=== PATIENT | female | born 1945 | race Caucasian/White ===

== ENCOUNTER 2018-02-03 05:28 | Inpatient (IN) | payer MEDICARE, BC ==
--- NOTE | 2018-02-03 05:47 | RADIOLOGY REPORT (SQ) ---
Clinical History : STROKE ALERT , Exam : Portable AP view of the chest 02/03/2018 5:29 AM CDT Comparisons : none Findings : The patient is in lordotic position which accentuates the lung apices and partially obscures evaluation of the lung bases. The lungs are clear without focal consolidation or pleural effusion. The heart is normal in size. The mediastinal contours are normal in appearance. The thoracic spine is age appropriate. The shoulders are unremarkable. Limited evaluation of the upper abdomen demonstrates no gross abnormalities. Impression: No acute cardiopulmonary disease
--- NOTE | 2018-02-03 05:47 | RADIOLOGY REPORT (SQ) ---
Clinical History : STROKE ALERT. L SIDE WEAKNESS. , Exam : CT Head without contrast 02/03/2018 5:29 AM CDT Comparisons : none. Technique : Volumetric CT acquisition was performed through the brain. Images in the axial, coronal, and sagittal planes were presented for interpretation. This exam was performed according to our departmental dose-optimization program, which includes automated exposure control, adjustment of the mA and/or kV according to patient size and/or use of iterative reconstruction technique. Radiation dose : DLP - 963.96 Findings: The soft tissue structures of the face, scalp, and orbits are normal. The globes remain intact. The patient is status post bilateral cataract resection. The visualized portions of the paranasal sinuses and mastoid air-cells are clear. The calvarium remains intact . There is no acute intracranial hemorrhage, midline shift, or mass effect. The ventricles are normal in size and the posterior fossa structures are normal in appearance. Limited evaluation of the vasculature demonstrates no gross abnormalities. There is no CT evidence of acute infarction. Impression: No acute intracranial process.
[2018-02-03 05:57] LABS: ABSOLUTE BASOPHILS # (AUTO) 0.1 10^3/uL (0.0-0.2); ABSOLUTE EOSINOPHILS # (AUTO) 0.2 10^3/uL (0.0-0.6); ABSOLUTE LYMPHOCYTES (AUTO) 2.3 10^3/uL (0.5-4.7); ABSOLUTE MONOCYTES (AUTO) 0.6 10^3/uL (0.1-1.4); ABSOLUTE NEUT (AUTO) 2.8 10^3/uL (1.7-8.2); EOSINOPHILS % (AUTO) 2.7 % (0-6); HEMATOCRIT 36.4 % (36.0-47.0); HEMOGLOBIN 12.6 g/dL (12.0-15.5); LYMPHOCYTES % (AUTO) 39.4 % (13-45); MEAN CORPUSCULAR HGB CONC 34.6 g/dL (32.0-36.0); MEAN CORPUSCULAR VOLUME 90 fl (80-97); MONOCYTES % (AUTO) 9.8 % (3-13); PLATELET COUNT 160 10^3/uL (150-450); RED BLOOD COUNT 4.06 10^6/uL (3.72-5.28); RED CELL DISTRIBUTION WIDTH 13.3 % (11.5-14.0); SEGMENTED NEUTROPHILS % (AUTO) 47.1 % (42-78); TOTAL CELLS COUNTED % (AUTO) 100 %
[2018-02-03 06:03] LABS: INTERNATIONAL RATION (INR) 1.04; PROTHROMBIN TIME 14.1 SEC (11.4-15.4)
[2018-02-03 06:04] LABS: PARTIAL THROMBOPLASTIN TIME 26.1 SEC (23.5-35.8)
--- NOTE | 2018-02-03 06:06 | ER Document Report ---
ED Medical Screen (RME) - General Chief Complaint: Weakness Stated Complaint: STROKE LIKE SYMPTOMS Mode of Arrival: Medic Information source: Patient, Relative Notes: 73-year-old female with hepatitis, cirrhosis presents via EMS from home with slurred speech and facial droop. Patient states that she awoke 4 hours prior to arrival from sleep with left-sided facial and neck pain. She hesitated to call her daughter initially because she was unaware that she was slurring her speech. She states she is now pain-free. NIH performed upon arrival is 3 for left-sided facial droop and slurred speech. PHYSICAL EXAMINATION: GENERAL: Well-appearing, well-nourished and in no acute distress. HEAD: Atraumatic, normocephalic. EYES: Pupils equal round extraocular movements intact, conjunctiva are normal. ENT: Nares patent NECK: Normal range of motion LUNGS: No respiratory distress Musculoskeletal: Normal range of motion NEUROLOGICAL: Normal speech, normal gait. PSYCH: Normal mood, normal affect. SKIN: Warm, Dry, normal turgor, no rashes or lesions noted. TRAVEL OUTSIDE OF THE [place] IN LAST 30 DAYS: No - Related Data Allergies/Adverse Reactions: No Known Allergies Allergy (Unverified 03/14/14 14:20) Past Medical History - Past Medical History Cardiac Medical History: Denies: Hx Heart Attack, Hx Hypertension Pulmonary Medical History: Denies: Hx Asthma Neurological Medical History: Denies: Hx Cerebrovascular Accident, Hx Seizures GI Medical History: Reports: Hx Hepatitis - hep c FROM SURGERY IN 1982. Denies : Hx Hiatal Hernia, Hx Ulcer Infectious Medical History: Reports: Hx Hepatitis - hep c FROM SURGERY IN 1982 Past Surgical History: Reports: Hx Hysterectomy. Denies: Hx Mastectomy, Hx Open Heart Surgery, Hx Pacemaker Physical Exam - Vital signs Vitals: Pulse Resp BP Pulse Ox 64 18 137/107 H 96 02/03/18 05:28 02/03/18 05:28 02/03/18 05:28 02/03/18 05:28 Course - Vital Signs Vital signs: Temp Pulse Resp BP Pulse Ox 98.2 F 70 16 133/78 H 94 02/03/18 05:30 02/03/18 06:00 02/03/18 07:01 02/03/18 07:01 02/03/18 07:01 - Laboratory Result Diagrams: 02/03/18 05:45 02/03/18 05:45 Laboratory results interpreted by me: 02/03/18 02/03/18 05:45 05:48 Carbon Dioxide 31 H Glucose 234 H POC Glucose 226 H Creatine Kinase 29 L Doctor's Discharge - Discharge Referrals: BACILIO SMITH MD [Primary Care Provider] - Follow up as needed
[2018-02-03 06:10] LABS: ALANINE AMINOTRANSFERASE 30 U/L (9-52); ALBUMIN 4.3 g/dL (3.5-5.0); ALKALINE PHOSPHATASE 58 U/L (38-126); ANION GAP 14 (5-19); ASPARTATE AMINO TRANSFERASE 28 U/L (14-36); BILIRUBIN,DIRECT 0.4 mg/dL (0.0-0.4); BILIRUBIN,TOTAL 0.4 mg/dL (0.2-1.3); BLOOD UREA NITROGEN 18 mg/dL (7-20); CALCIUM 9.6 mg/dL (8.4-10.2); CARBON DIOXIDE 31 mmol/L (22-30); CHLORIDE 100 mmol/L (98-107); CREATINE KINASE 29 U/L (30-135); GLUCOSE 234 mg/dL (75-110); POTASSIUM 4.4 mmol/L (3.6-5.0); SODIUM 144.6 mmol/L (137-145); TOTAL PROTEIN 7.4 g/dL (6.3-8.2)
[2018-02-03 06:22] LABS: CREATINE KINASE MB 0.54 ng/mL (<4.55); TROPONIN I < 0.012 ng/mL
--- NOTE | 2018-02-03 06:31 | ER Document Report ---
ED General - General Mode of Arrival: Medic Information source: Patient, Relative TRAVEL OUTSIDE OF THE [place] IN LAST 30 DAYS: No - HPI Onset: Yesterday Onset/Duration: Sudden Quality of pain: No pain Severity: None Associated symptoms: None Exacerbated by: Denies Relieved by: Denies Similar symptoms previously: No Recently seen / treated by doctor: No <RYAN OBRIEN - Last Filed: 02/03/18 07:21> <SCHUYLER DRUMMOND - Last Filed: 02/03/18 07:59> - General Chief Complaint: Weakness Stated Complaint: STROKE LIKE SYMPTOMS Time Seen by Provider: 02/03/18 06:28 Notes: 73-year-old female with hepatitis, cirrhosis presents via EMS from home with slurred speech and facial droop. Patient states that she awoke 4 hours prior to arrival from sleep with left-sided facial and neck pain. She hesitated to call her daughter initially because she was unaware that she was slurring her speech. She states she is now pain-free. (RYAN OBRIEN) - Related Data Allergies/Adverse Reactions: No Known Allergies Allergy (Unverified 03/14/14 14:20) Past Medical History - General Information source: Patient, Relative - Social History Smoking Status: Former Smoker Frequency of alcohol use: None Drug Abuse: None Lives with: Family Family History: Reviewed & Not Pertinent - Past Medical History Cardiac Medical History: Denies: Hx Heart Attack, Hx Hypertension Pulmonary Medical History: Denies: Hx Asthma Neurological Medical History: Denies: Hx Cerebrovascular Accident, Hx Seizures GI Medical History: Reports: Hx Hepatitis - hep c FROM SURGERY IN 1982. Denies : Hx Hiatal Hernia, Hx Ulcer Infectious Medical History: Reports: Hx Hepatitis - hep c FROM SURGERY IN 1982 Past Surgical History: Reports: Hx Hysterectomy. Denies: Hx Mastectomy, Hx Open Heart Surgery, Hx Pacemaker <RYAN OBRIEN - Last Filed: 02/03/18 07:21> Review of Systems <RYAN OBRIEN - Last Filed: 02/03/18 07:21> <SCHUYLER DRUMMOND - Last Filed: 02/03/18 07:59> - Review of Systems Notes: REVIEW OF SYSTEMS: CONSTITUTIONAL : Denies fever, chills, or sweats. Denies recent illness. Denies weight loss, recent hospitalizations. EENT: Denies visula changes, eye pain. Denies nasal or sinus congestion or discharge. Denies sore throat, oral lesions, difficulty swallowing. CARDIOVASCULAR: Denies chest pain. Denies palpitations or racing or irregular heart beat. Denies lower extremity edema. RESPIRATORY: Denies cough, cold, or chest congestion. Denies shortness of breath, difficulty breathing, or wheezing. GASTROINTESTINAL: Denies abdominal pain or distention. Denies nausea, vomiting , or diarrhea. Denies blood in vomitus, stools, or per rectum. Denies black, tarry stools. Denies constipation. GENITOURINARY: Denies difficulty urinating, painful urination, burning, frequency, blood in urine, or vaginal discharge. MUSCULOSKELETAL: Denies back or neck pain or stiffness. Denies joint pain or swelling. SKIN: Denies rash, lesions or sores. HEMATOLOGIC : Denies easy bruising or bleeding. LYMPHATIC: Denies swollen, enlarged glands. NEUROLOGICAL: Denies confusion or altered mental status. Denies passing out or loss of consciousness. Denies dizziness or lightheadedness. Denies weakness or paralysis or loss of use of either side. Denies problems with gait or speech. Denies sensory loss, numbness, or tingling. Denies seizures. PSYCHIATRIC: Denies anxiety or stress. Denies depression, suicidal ideation, or homicidal ideation. (RYAN OBRIEN) Physical Exam <RYAN OBRIEN - Last Filed: 02/03/18 07:21> <SCHUYLER DRUMMOND - Last Filed: 02/03/18 07:59> - Vital signs Vitals: Pulse Resp BP Pulse Ox 64 18 137/107 H 96 02/03/18 05:28 02/03/18 05:28 02/03/18 05:28 02/03/18 05:28 - Notes Notes: PHYSICAL EXAMINATION: GENERAL: Well-appearing, well-nourished and in no acute distress. HEAD: Atraumatic, normocephalic. EYES: Pupils equal round and reactive to light, extraocular movements intact, conjunctiva are normal. ENT: Nares patent, oropharynx clear without exudates. Moist mucous membranes. NECK: Normal range of motion, supple without lymphadenopathy LUNGS: Breath sounds clear to auscultation bilaterally and equal. No wheezes rales or rhonchi. HEART: Regular rate and rhythm without murmurs ABDOMEN: Soft, nontender, nondistended abdomen. No guarding, no rebound. No masses appreciated. Female : deferred Musculoskeletal: Normal range of motion, no pitting or edema. No cyanosis. NEUROLOGICAL: Left-sided facial droop. Slurred speech Normal sensory, motor exams PSYCH: Normal mood, normal affect. SKIN: Warm, Dry, normal turgor, no rashes or lesions noted. (RYAN OBRIEN) Course - Laboratory Result Diagrams: 02/03/18 05:45 02/03/18 05:45 <RYAN OBRIEN - Last Filed: 02/03/18 07:21> - Laboratory Result Diagrams: 02/03/18 05:45 02/03/18 05:45 <SCHUYLER DRUMMOND - Last Filed: 02/03/18 07:59> - Re-evaluation Re-evalutation: Laboratory 02/03/18 02/03/18 02/03/18 05:45 05:45 05:45 WBC 6.0 RBC 4.06 Hgb 12.6 Hct 36.4 MCV 90 MCH 31.0 MCHC 34.6 RDW 13.3 Plt Count 160 Seg Neutrophils % 47.1 Lymphocytes % 39.4 Monocytes % 9.8 Eosinophils % 2.7 Basophils % 1.0 Absolute Neutrophils 2.8 Absolute Lymphocytes 2.3 Absolute Monocytes 0.6 Absolute Eosinophils 0.2 Absolute Basophils 0.1 PT 14.1 INR 1.04 APTT 26.1 Sodium 144.6 Potassium 4.4 Chloride 100 Carbon Dioxide 31 H Anion Gap 14 BUN 18 Creatinine 0.86 Est GFR ( Amer) > 60 Est GFR (Non-Af Amer) > 60 Glucose 234 H POC Glucose Calcium 9.6 Total Bilirubin 0.4 Direct Bilirubin 0.4 Neonat Total Bilirubin Not Reportable Neonat Direct Bilirubin Not Reportable Neonat Indirect Bili Not Reportable AST 28 ALT 30 Alkaline Phosphatase 58 Creatine Kinase 29 L CK-MB (CK-2) Troponin I Total Protein 7.4 Albumin 4.3 02/03/18 02/03/18 05:45 05:48 WBC RBC Hgb Hct MCV MCH MCHC RDW Plt Count Seg Neutrophils % Lymphocytes % Monocytes % Eosinophils % Basophils % Absolute Neutrophils Absolute Lymphocytes Absolute Monocytes Absolute Eosinophils Absolute Basophils PT INR APTT Sodium Potassium Chloride Carbon Dioxide Anion Gap BUN Creatinine Est GFR ( Amer) Est GFR (Non-Af Amer) Glucose POC Glucose 226 H Calcium Total Bilirubin Direct Bilirubin Neonat Total Bilirubin Neonat Direct Bilirubin Neonat Indirect Bili AST ALT Alkaline Phosphatase Creatine Kinase CK-MB (CK-2) 0.54 Troponin I < 0.012 Total Protein Albumin Head CTA 02/03/18 06:07 IMPRESSION: 1. No definite acute abnormality identified in the intracranial circulation. No evidence of occlusion or stenosis. This exam was performed according to our departmental dose-optimization program, which includes automated exposure control, adjustment of the mA and/or kV according to patient size and/or use of iterative reconstruction technique. 02/03/18 06:32 73-year-old female with hepatitis, cirrhosis presents via EMS from home with slurred speech and facial droop. Patient states that she awoke 4 hours prior to arrival from sleep with left-sided facial and neck pain. She hesitated to call her daughter initially because she was unaware that she was slurring her speech. She states she is now pain-free. NIH scale performed upon arrival and 3 for facial droop, slurred speech. Last known well is unknown. Patient was seen by myself upon arrival. Vital signs were reviewed. Patient is afebrile, normotensive and not hypoxic. Patient does not appear toxic or dehydrated. They are in no acute distress. Previous medical records and nursing notes reviewed. Patient will be signed out to Dr. Drummond 02/03/18 07:21 02/03/18 07:22 (RYAN OBRIEN) 02/03/18 07:55 CT of the head is negative, there is no large vessel occlusion, there is no evidence of dissection. No indication for transfer to tertiary center as she is not a candidate for intervention. Family also understands why the patient is not a candidate for TPA with wake-up stroke well outside of the for an half hour timeframe. Patient was discussed with Dr. Rosibel Ruiz from the hospitalist service, she will place the patient on her service in observation status. (SCHUYLER DRUMMOND) - Vital Signs Vital signs: Temp Pulse Resp BP Pulse Ox 98.2 F 70 16 133/78 H 94 02/03/18 05:30 02/03/18 06:00 02/03/18 07:01 02/03/18 07:01 02/03/18 07:01 - Laboratory Laboratory results interpreted by me: 02/03/18 02/03/18 05:45 05:48 Carbon Dioxide 31 H Glucose 234 H POC Glucose 226 H Creatine Kinase 29 L Discharge <RYAN OBRIEN - Last Filed: 02/03/18 07:21> - Discharge Admitting Provider: [facility] Admitted: [facility] <SCHUYLER DRUMMOND - Last Filed: 02/03/18 07:59> - Discharge Clinical Impression: Stroke Qualifiers: CVA mechanism: unspecified Qualified Code(s): I63.9 - Cerebral infarction, unspecified Condition: Fair Disposition: ADMITTED OBSERVATION Referrals: BACILIO SMITH MD [Primary Care Provider] - Follow up as needed ED NIH Stroke Scale - NIH Stroke Scale *: 1. NIH scale should be completed with appropriate accompanying assessment tools. *: 2. The NIH should reflect what the patient is capable of doing and should not be coached by the clinician. 1a. Level of Consciousness: 0=Alert;keenly responsive -: 1=Drowsy -: 2=Obtunded -: 3=Coma/unresponsive or reflex to noxious stimuli. 1a. Responses: 0 1b. Orientation Questions: a. What month is it? -: b. How old are you? -: 0=Answers both questions correctly. -: 1=Answers one question correctly or patient is intubated or has orotracheal trauma. -: 2=Answers neither question correctly. 1b. Responses: 0 1c. Response to commands: a. Open and close eyes? -: b. Flavor Maker and release hand? -: Credit is given despite weakness. Demonstration of task is permitted. Substitute command if hands cannot be used. -: 0=Performs both tasks correctly -: 1=Performs one task correctly -: 2=Performs neither task correctly 1c. Responses: 0 2. Gaze: Establish eye contact and instruct patient to "Follow my finger" -: 0=Normal -: 1=Partial gaze palsy. Gaze is abnormal in one or both eyes, but where forced deviation or total gaze paresis is not present. -: 2=Forced deviation or total gaze paresis. 2. Responses: 0 3. Visual Saenz: Sees fingers in all four quadrants. -: 0=No visual loss. -: 1=Partial hemianopsia. -: 2=Complete hemianopsia. -: 3=Bilateral hemianopsia (including Cortical blindness) 3. Responses: 0 4. Facial Movement: Instruct patient to: -: a. Show me your teeth -: b. Raise your eyebrows -: c. Close your eyes -: d. Smile -: 0=Normal symmetrical movement -: 1=Minor paralysis (flattened nasolabial fold, asymmetry on smiling). -: 2=Partial paralysis (total or near total paralysis of lower face). -: 3=Complete paralysis of upper and lower face 4. Responses: 2 5. Motor functions (left arm): Alternate sides and extend each arm with palms down (90 degrees if sitting or 45 degrees for supine). -: 0=No drift;limb holds for full 10 seconds. -: 1=Drift; limb holds but drifts down before full 10 seconds, but does not hit bed. -: 2=Some effort against gravity; limb cannot get to or maintain position. -: 3=No effort against gravity; limb falls. -: 4=No movement. -: UN=Amputation, joint fusion, explain in comments. 5. Responses (left arm): 0 5. Motor Functions (right arm): Alternate sides and extend each arm with palms down (90 degrees if sitting or 45 degrees for supine). -: 0=No drift;limb holds for full 10 seconds. -: 1=Drift; limb holds but drifts down before full 10 seconds, but does not hit bed. -: 2=Some effort against gravity; limb cannot get to or maintain position. -: 3=No effort against gravity; limb falls. -: 4=No movement. -: UN=Amputation, joint fusion, explain in comments. 5. Responses (right arm): 0 6. Motor Functions (left leg): With patient lying supine, alternate sides and extend each leg (30 degrees always while supine). -: 0=No drift, leg holds position for full 5 seconds -: 1=Drift; leg falls before full 5 seconds but does not hit bed. -: 2=Some effort against gravity, leg falls to bed but some effort against gravity. -: 3=No effort against gravity, leg falls to bed immediately. -: 4=No movement. -: UN=Amputation, joint fusion; explain in comments. 6. Responses (left leg): 0 6. Motor Functions (right leg): With patient lying supine, alternate sides and extend each leg (30 degrees always while supine). -: 0=No drift, leg holds position for full 5 seconds -: 1=Drift; leg falls before full 5 seconds but does not hit bed. -: 2=Some effort against gravity, leg falls to bed but some effort against gravity. -: 3=No effort against gravity, leg falls to bed immediately. -: 4=No movement. -: UN=Amputation, joint fusion; explain in comments. 6. Responses (right leg): 0 7. Limb Ataxia: With eyes open instruct patient to: -: a. "Touch your finger to your nose". -: b. "Touch your heel to your pickens" -: 0=Absent -: 1=Present in one limb. -: 2=Present in two limbs. -: UN=Amputation or joint fusion; explain in comments. 7. Responses: 0 8. Sensory: Test sensation using pinprick or noxious stimuli. Test as many body parts as possible. -: 0=Normal;no sensory loss -: 1=Mile to moderate sensory loss (patient feels pin prick but is less sharp on affected side). -: 2=Severe or total sensory loss. 8. Responses: 0 9. Best Language: Instruct patient to: -: a. "Describe what you see in this picture." -: b. "Name the items in this picture." -: c. "Read these sentences." -: 0=No aphasia, normal -: 1=Mild to moderate aphasia. -: 2=Severe aphasia -: 3=Mute, global aphasia, no usable speech or auditory comprehension. 9. Responses: 0 10. Articulation, Dysarthia: Instruct patient to: -: "Read these words" or "Repeat these words" -: 0=Normal -: 1=Mild to moderate; patient may slur some words but can be understood without difficulty. -: 2=Severe; patients speech so slurred as to be unintelligible in the absence of dysphasia. -: UN=Intubated or other physical barrier, explain in comments. 10. Responses: 1 11. Extinction or inattention: 0=No abnormality -: 1= Visual, tactile, auditory, spatial, or personal inattention or extinction to bilateral simulation in one or the sensory modalities. -: 2=Profound khloe-inattention or khloe-inattention to more than one modality; does not recognize own dieudonne. Total Score: 3 <RYAN OBRIEN - Last Filed: 02/03/18 07:21> ED [employer]/Exc Criteria - Date/Time patient last known well: Date/Time: 02/02/2018 21:30 - Date/Time patient arrived in ED: _: 02/03/2018 5:28 - Inclusion Criteria: 1: Patient presented to ED within 3 hours of acute ischemic stroke symptom onset ? -: No 2: Did baseline CT exclude intracranial hemorrhage and/or other risk factors? -: Yes 3: Is the age of the patient 18 years of age or greater? -: Yes : If any of the above questions are answered "NO" then stop, patient is not a candidate for Alteplase, : If all of the above questions are answered "YES" then continue with Exclusion Criteria. - The patient is: -: Included and is eligible to receive Alteplase. *Initiate bed placement at higher level of care* --: No Reviewd risks & benefits of thrombolytic therapy: I have reviewed the risks and benefits of thrombolytic therapy with the patient and/or his/her family. Yes - aware she is out of timeframe -: Excluded and not eligible to receive Alteplase for the above exclusions. --: Yes - out of timefram -: Excluded and not eligible to receive Alteplase for other reasons (specify in comments): <SCHUYLER DRUMMOND - Last Filed: 02/03/18 07:59>
[2018-02-03] MEDS ORDERED: ASPIRIN 81 MG TABLET, CHEWABLE PO ONE (06:42)
--- NOTE | 2018-02-03 06:45 | RADIOLOGY REPORT (SQ) ---
EXAM DESCRIPTION: CTA of the head with contrast CLINICAL HISTORY: slurred speach. COMPARISON: CT of the head performed same day. TECHNIQUE: Axial CTA images of the head obtained following the uncomplicated intravenous administration of 70 mL Isovue-370. 3-D/MIP reformatted images available. FINDINGS: Evaluation is suboptimal due to delayed contrast bolus timing with significant venous contamination. The intracranial internal carotid arteries are widely patent. Mild atherosclerotic plaque. The internal carotid arteries bifurcate into patent A1 and M1 branches of the anterior and middle cerebral arteries, respectively. No evidence of occlusion or flow-limiting stenosis. No pruning of the distal vasculature in the anterior arterial territories. No definite aneurysm identified. Evaluation for aneurysms smaller than 3 mm is suboptimal due to technique. The intracranial vertebral arteries are patent and combined to form a patent basilar artery. The basilar artery bifurcates into patent posterior cerebral arteries. No definite aneurysm, stenosis or occlusion in the posterior circulation. DLP: 158.30 mGy-cm IMPRESSION: 1. No definite acute abnormality identified in the intracranial circulation. No evidence of occlusion or stenosis. This exam was performed according to our departmental dose-optimization program, which includes automated exposure control, adjustment of the mA and/or kV according to patient size and/or use of iterative reconstruction technique.
[2018-02-03] MEDS ORDERED: ACETAMINOPHEN 325 MG TABLET PO PRN (08:04)
[2018-02-03] MEDS ORDERED: ONDANSETRON 4 MG TAB.RAPDIS PO PRN (08:04)
[2018-02-03] MEDS ORDERED: ONDANSETRON HCL INJ/PF 4 MG/2 ML SDV IV PRN (08:04)
[2018-02-03] MEDS ORDERED: DEXTROSE 50%-WATER 25 GM/50 ML DISP.SYRIN IV PRN ×2 (08:11)
[2018-02-03] MEDS ORDERED: INSULIN LISPRO 100 UNIT/ML 3 ML VIAL SUBCUT PRN (08:11)
[2018-02-03] MEDS ORDERED: GLUCAGON,HUMAN RECOMB 1 MG INJ IM PRN (08:11)
[2018-02-03] MEDS ORDERED: DEXTROSE 40% GEL 15 GM TUBE PO PRN ×2 (08:11)
--- NOTE | 2018-02-03 08:41 | EKG REPORT ---
SEVERITY:- NORMAL ECG - SINUS RHYTHM : Confirmed by: Lynette Castro 03-Feb-2018 08:40:46
[2018-02-03] MEDS ORDERED: METHADONE HCL 10 MG TABLET PO ONE ×2 (09:12→13:30)
[2018-02-03] MEDS ORDERED: GABAPENTIN 300 MG CAPSULE PO ONE (09:12)
--- NOTE | 2018-02-03 09:12 | RADIOLOGY REPORT (SQ) ---
EXAM DESCRIPTION: MRI HEAD WITHOUT COMPLETED DATE/TIME: 02/03/2018 8:54 am REASON FOR STUDY: slurred speach. COMPARISON: CT angio brain 02/03/2018 CT brain 02/03/2018 CT angio neck 02/03/2018 TECHNIQUE: Multiplanar imaging includes non-contrasted T1, T2, FLAIR, and diffusion with ADC map seq uences. Images stored on PACS. LIMITATIONS: None. FINDINGS: ANATOMY: No anomalies. Normal vascular flow voids. Pituitary fossa normal. CSF SPACES: Normal in size and contour. No hemorrhage. CEREBRUM: Small acute nonhemorrhagic subcortical white matter infarct right perisylvian frontal lobe. No MR evidence of acute intracranial hemorrhage mass effect or midline shift. Age-appropriate mini mal spotty chronic small vessel white matter disease in the bifrontal and biparietal regions. POSTERIOR FOSSA: No signal alteration. No hemorrhage. No edema, masses or mass effect. Internal rhiannon tory canals, cerebello-pontine angles, mastoids normal. DIFFUSION IMAGING: Small acute nonhemorrhagic subcortical white matter infarct, right frontal region ORBITS: No masses. Globes normal. PARANASAL SINUSES: No fluid levels. Mucosa normal. OTHER: Report called to Dr. Bond IMPRESSION: Small acute nonhemorrhagic subcortical white matter infarct, right frontal region EVIDENCE OF ACUTE STROKE: NO. TECHNICAL DOCUMENTATION: JOB ID: [id number] [employer]- All Rights Reserved Reading location - IP/workstation name: [email or web address]
--- NOTE | 2018-02-03 09:16 | RADIOLOGY REPORT (SQ) ---
EXAM DESCRIPTION: MRA NECK WITHOUT COMPLETED DATE/TIME: 02/03/2018 8:54 am REASON FOR STUDY: r/o carotid artery dissection COMPARISON: MRI brain same date CT angio brain same date CT brain same date TECHNIQUE: Axial 2-D volume acquisition imaging through the extracranial carotid and vertebral arter ies with reformatting using 3-D MIPS. LIMITATIONS: None. FINDINGS: RIGHT CAROTID ARTERY: No stenosis or occlusive changes. Limited visualization of the orig in. LEFT CAROTID ARTERY: No stenosis or occlusive changes. Limited visualization of the origin. VERTEBRAL ARTERY: The extracranial portions of the vertebral basilar system are preserved without chuy nosis. No aneurysmal dilatation or dissection is seen. OTHER: No other significant finding. IMPRESSION: NO SIGNIFICANT STENOSIS. COMMENT: Quality ID #[id number]: Measurements of distal internal carotid diameter were used as the denomin ator for stenosis measurement. TECHNICAL DOCUMENTATION: JOB ID: [id number] [employer]- All Rights Reserved Reading location - IP/workstation name: [email or web address] [place]
[2018-02-03] MEDS: PANTOPRAZOLE SODIUM 40 MG VIAL IV SCH (09:27)
[2018-02-03] MEDS ORDERED: ENOXAPARIN SODIUM INJ 40 MG/0.4 ML DISP.SYRIN SUBCUT SCH (10:00)
[2018-02-03] MEDS ORDERED: (PENDING PHARMACY ID) (Ondansetron Hcl [Zofran 4 Mg Tablet] 4 MG) PO PRN (12:37)
--- NOTE | 2018-02-03 13:03 | PDOC H&P ---
History of Present Illness Admission Date/PCP: 02/03/18 08:44 BACILIO MONROY MD Patient complains of: L sided facial droop slurred speech History of Present Illness: The patient is a 73 year old female with history of: Cirrhosis due to hepatitis C Hep C- treated Hemorrhoids Epistaxis Chronic pain, on methadone Peripheral neuropathy Osteoporosis Iron deficiency anemia Type 2 Diabetes- not on Insulin She presented to the hospital after she woke up this am with slurred speech and L arm weakness. Her daughter noticed L sided facial droop and she was brought to the ER. MRI brain showed a small R frontal non hemorrhagic CVA. CTA head- normal, MRA neck- normal. Not on anti platelets due to history of hemorrhoidal bleeding- not a candidate for surgery per daughter. Episodes of epistaxis- never requiring surgery or packing. 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 Catia Monroy, who sees her regularlt and does periodic Endoscopies. The patient and family deny any major upper GI bleeding or banding. Past Medical History Cardiac Medical History: Reports: Hypertension Endocrine Medical History: Reports: Diabetes Mellitus Type 2 GI Medical History: Reports: Cirrhosis Infectious Medical History: Reports: Hepatitis C Past Surgical History Past Surgical History: Reports: Hysterectomy Denies: Amputation, Mastectomy, Pacemaker Social History Lives with: Family Smoking Status: Never Smoker Frequency of Alcohol Use: None Hx Recreational Drug Use: No Drugs: None - Advance Directive Resuscitation Status: Full Code Family History Family History: Hypertension Parental Family History Reviewed: Yes Children Family History Reviewed: Yes Sibling(s) Family History Reviewed.: Yes Medication/Allergy Home Medications: Calcium Carbonate/Vitamin D3 [Calcium 600-Vit D3 400 Tablet] 1 tab PO DAILY 09/22 Cetirizine HCl [Zyrtec 10 mg Tablet] 10 mg PO QHS 02/03/18 Febuxostat [Uloric 80 mg Tablet] 80 mg PO DAILY 02/03/18 Furosemide [Lasix 40 mg Tablet] 40 mg PO QPM 02/03/18 Furosemide [Lasix 80 mg Tablet] 80 mg PO QAM 02/03/18 Ondansetron HCl [Zofran 4 mg Tablet] 4 mg PO Q6HP PRN 02/03/18 Polyethylene Glycol 3350 [Miralax Powder 17 gm/Packet] 1 packet PO DAILY RX: Ferrous Sulfate [Feosol 325 mg Tablet] 325 mg PO BID 02/03/18 RX: Gabapentin [Neurontin 300 mg Capsule] 600 mg PO BID@08,12 02/03/18 RX: Gabapentin [Neurontin 300 mg Capsule] 900 mg PO QHS 02/03/18 RX: Metformin HCl [Glucophage] 1,000 mg PO Q12A 02/03/18 RX: Methadone HCl [Dolophine 10 mg Tablet] 10 mg PO Q12 02/03/18 RX: Nadolol [Corgard] 20 mg PO QHS 02/03/18 RX: Omeprazole 20 mg PO QAM 02/03/18 Rifaximin [Xifaxan 550 mg Tablet] 550 mg PO BID 02/03/18 Spironolactone [Aldactone] 100 mg PO DAILY 02/03/18 Sucralfate [Carafate 1 gm Tablet] 1 gm PO ACHS 02/03/18 Allergies/Adverse Reactions: No Known Allergies Allergy (Verified 02/03/18 08:58) Review of Systems Constitutional: ABSENT: fever(s) Eyes: ABSENT: visual disturbances Ears: ABSENT: hearing changes Nose, Mouth, and Throat: ABSENT: sore throat Cardiovascular: ABSENT: chest pain, edema Respiratory: ABSENT: dyspnea, hemoptysis Gastrointestinal: ABSENT: abdominal pain, coffee ground emesis, diarrhea, heartburn, hematemesis, hematochezia, vomiting Musculoskeletal: ABSENT: deformity Integumentary: ABSENT: rash Neurological: PRESENT: focal weakness. ABSENT: syncope Psychiatric: ABSENT: hallucinations Endocrine: ABSENT: heat intolerance Hematologic/Lymphatic: ABSENT: lymphadenopathy Allergic/Immunologic: ABSENT: seasonal rhinorrhea Physical Exam Vital Signs: Temp Pulse Resp BP Pulse Ox 97.7 F 62 18 131/59 H 96 02/03/18 11:35 02/03/18 12:00 02/03/18 12:00 02/03/18 12:00 02/03/18 12:00 Intake & Output 02/02/18 02/03/18 02/04/18 06:59 06:59 06:59 Weight 77 kg General appearance: PRESENT: no acute distress, well-developed, well-nourished Head exam: PRESENT: normocephalic Eye exam: PRESENT: EOMI, PERRLA. ABSENT: scleral icterus Ear exam: PRESENT: normal external ear exam Mouth exam: PRESENT: moist Teeth exam: PRESENT: edentulous Neck exam: ABSENT: carotid bruit, tenderness, tracheal deviation Respiratory exam: PRESENT: clear to auscultation britney, symmetrical, unlabored Cardiovascular exam: PRESENT: RRR GI/Abdominal exam: PRESENT: normal bowel sounds, soft. ABSENT: tenderness Rectal exam: PRESENT: deferred Musculoskeletal exam: PRESENT: normal inspection Neurological exam: PRESENT: alert, awake, oriented to person, oriented to time, oriented to situation, other - slurred speech, L facial droop, L upper extremity 3+/5 strength Psychiatric exam: PRESENT: appropriate affect Skin exam: ABSENT: rash Results Impressions: Neck MRA 02/03/18 00:00 IMPRESSION: NO SIGNIFICANT STENOSIS. Head CTA 02/03/18 06:07 IMPRESSION: 1. No definite acute abnormality identified in the intracranial circulation. No evidence of occlusion or stenosis. This exam was performed according to our departmental dose-optimization program, which includes automated exposure control, adjustment of the mA and/or kV according to patient size and/or use of iterative reconstruction technique. Head MRI 02/03/18 06:07 IMPRESSION: Small acute nonhemorrhagic subcortical white matter infarct, right frontal region EVIDENCE OF ACUTE STROKE: NO. Assessment & Plan - Diagnosis (1) Acute CVA (cerebrovascular accident) Is this a current diagnosis for this admission?: Yes Plan: Permissive Hypertension- hold Spironolactone, lasix and Nadolol. Check Echo, Lipid profile hemoglobin A1c, monitor on tele. Continue Aspirin and Statin. Serial Neuro exams per protocol. PT, OT, speech therapy (2) Cirrhosis Is this a current diagnosis for this admission?: Yes Plan: Outpatient follow up (3) History of epistaxis Is this a current diagnosis for this admission?: Yes Plan: Monitor closely, [place] nasal spray to prevent nasal dryness (4) Diabetes Is this a current diagnosis for this admission?: Yes Plan: Hold Metformin Insulin sliding scale - Time Time Spent: Greater than 70 Minutes - Inpatient Certification Based on my medical assessment, after consideration of the patient's comorbidities, presenting symptoms, or acuity I expect that the services needed warrant INPATIENT care.: No
[2018-02-03] MEDS: POLYETHYLENE GLYCOL 3350 POWDER 17 GM/1 PACKET PO SCH (14:02)
[2018-02-03] MEDS: SUCRALFATE 1 GM TABLET PO SCH ×2 (16:04→22:35)
[2018-02-03] MEDS: SODIUM CHLORIDE NASAL SPRAY 44 ML NASL SCH ×2 (16:06→22:36)
[2018-02-03] MEDS: FEBUXOSTAT 80 MG TABLET PO SCH (17:26)
[2018-02-03] MEDS: FERROUS SULFATE 325 MG TABLET PO SCH (17:26)
[2018-02-03] MEDS: INSULIN LISPRO 100 UNIT/ML 3 ML VIAL SUBCUT PRN (17:34)
[2018-02-03] MEDS: RIFAXIMIN 550 MG TABLET PO SCH (17:36)
[2018-02-03] MEDS: HC ACETATE/PRAMOXINE HCL 10 GM PR SCH (17:40)
--- NOTE | 2018-02-03 18:17 | XCELERA REPORT ---
[address] [address] Transthoracic Echocardiogram Report Name: NANO BOSTON Age: 73 yrs Gender: Female : 1945 Patient Status: Inpatient Patient Location: [address] [place], [place] [id number] Study Date: 02/03/2018 02:51 PM Height: 63 in Weight: 169 lb BSA: 1.8 m2 Procedure: A two-dimensional transthoracic echocardiogram with color flow and Doppler was performed. Study Quality: Technically suboptimal. Reason For Study: CVA History: CVA. Ordering Physician: ZULEIMA MARSHALL Performed By: Samreen Lugo Interpretation Summary There is no obvious cardiac source of embolus noted on this transthoracic echocardiogram. Follow-up with a CHELA is suggested if cardiac source is still suspected. CVA The left ventricle is normal in size. There is normal left ventricular wall thickness. LV EF is > than 65% Left ventricular systolic function is normal. Doppler measurements suggest normal left ventricular diastolic function There is no thrombus. The right ventricle is not well visualized secondary to technical limitations The right atrium is normal. The left atrial size is normal. Cannot assess ASD /VSD /and or PFO. There is no evidence of mitral valve prolapse. There is no mitral valve stenosis. There is a trace amount of mitral regurgitation There is no aortic valve stenosis There is no LVOT obstruction. There is a trace to mild amount of aortic regurgitation There is no pericardial effusion. There is a trace to mild amount of tricuspid regurgitation There is mild pulmonary hypertension by echo RVSP is 34 to 39 mm of Hg , with RA mean of 5 to 10. There is no obvious cardiac source of embolus noted on this transthoracic echocardiogram. Follow-up with a CHELA is suggested if cardiac source is still suspected MMode/2D Measurements & Calculations RVDd: 3.3 cm LVIDd: 4.6 cm FS: 42.9 % Ao root diam: 2.7 cm IVSd: 0.97 cm LVIDs: 2.6 cm EDV(Teich): 98.0 ml LVPWd: 1.00 cm ESV(Teich): 25.5 ml Ao root area: 5.8 cm2 EF(Teich): 74.0 % Doppler Measurements & Calculations MV E max donaldo: MV dec slope: Ao V2 max: AI max donaldo: 98.1 cm/sec 170.5 cm/sec 445.0 cm/sec MV A max donaldo: 405.1 cm/sec2 Ao max PG: AI max P.4 cm/sec MV dec time: 11.6 mmHg 79.2 mmHg MV E/A: 1.1 0.24 sec AI dec slope: 208.4 cm/sec2 AI P1/2t: 625.4 msec LV V1 max PG: PA V2 max: TR max donaldo: 7.0 mmHg 116.5 cm/sec 258.7 cm/sec LV V1 max: PA max P.4 mmHg TR max P.9 cm/sec 26.8 mmHg Left Ventricle The left ventricle is normal in size. There is normal left ventricular wall thickness. LV EF is > than 65%. Left ventricular systolic function is normal. Doppler measurements suggest normal left ventricular diastolic function. The left ventricular wall motion is normal. There is no thrombus. Right Ventricle The right ventricle is not well visualized secondary to technical limitations. Atria The right atrium is normal. The left atrial size is normal. Cannot assess ASD /VSD /and or PFO. Mitral Valve There is no evidence of mitral valve prolapse. There is no vegetation seen on the mitral valve. There is no mitral valve stenosis. There is a trace amount of mitral regurgitation. Aortic Valve There is no aortic valvular vegetation. There is no aortic valve stenosis. There is no LVOT obstruction. There is a trace to mild amount of aortic regurgitation. Tricuspid Valve There is no tricuspid stenosis. There is a trace to mild amount of tricuspid regurgitation. There is mild pulmonary hypertension by echo. RVSP is 34 to 39 mm of Hg , with RA mean of 5 to 10. Great Vessels The aortic root is normal size. Effusions There is no pericardial effusion. : ROLANDO, ZULEIMA > Miriam Galvan
[2018-02-03] MEDS: CETIRIZINE 10 MG TABLET PO SCH (22:26)
[2018-02-03] MEDS: ATORVASTATIN CALCIUM 80 MG TABLET PO SCH (22:26)
[2018-02-03] MEDS: METHADONE HCL 10 MG TABLET PO SCH (22:27)
[2018-02-03] MEDS: GABAPENTIN 300 MG CAPSULE PO SCH (22:28)
[2018-02-04] MEDS: LANSOPRAZOLE 15 MG TAB.RAP.DR PO SCH (05:44)
[2018-02-04 05:47] LABS: CHOLESTEROL 156.42 mg/dL (0-200); TRIGLYCERIDES 263 mg/dL (<150)
[2018-02-04 06:00] LABS: DIRECT LDL 85 mg/dL (<100)
[2018-02-04 06:05] LABS: VLDL CHOLESTEROL 52.6 mg/dL (10-31)
[2018-02-04] MEDS: SUCRALFATE 1 GM TABLET PO SCH ×3 (08:04→17:04)
[2018-02-04] MEDS: GABAPENTIN 300 MG CAPSULE PO SCH ×3 (08:04→22:05)
[2018-02-04] MEDS: SODIUM CHLORIDE NASAL SPRAY 44 ML NASL SCH ×3 (08:05→17:04)
[2018-02-04] MEDS ORDERED: CALCIUM CARBONATE PO SCH (10:00)
[2018-02-04] MEDS ORDERED: VITAMIN D3 PO SCH (10:00)
[2018-02-04] MEDS ORDERED: [UNRECOGNIZED DRUG - OTHER] PO SCH (10:00)
[2018-02-04] MEDS: PANTOPRAZOLE SODIUM 40 MG VIAL IV SCH (10:47)
[2018-02-04] MEDS: ASPIRIN 81 MG TABLET, ENT COATED PO SCH (10:48)
[2018-02-04] MEDS: METHADONE HCL 10 MG TABLET PO SCH ×2 (10:48→22:04)
[2018-02-04] MEDS: FERROUS SULFATE 325 MG TABLET PO SCH ×2 (10:48→17:04)
[2018-02-04] MEDS: RIFAXIMIN 550 MG TABLET PO SCH ×2 (10:48→17:04)
[2018-02-04] MEDS: CALCIUM CARBONATE 250 MG/VITAMIN D3 125 UNIT TABLET PO SCH (10:49)
[2018-02-04] MEDS: HC ACETATE/PRAMOXINE HCL 10 GM PR SCH ×3 (11:06→17:05)
[2018-02-04] MEDS: POLYETHYLENE GLYCOL 3350 POWDER 17 GM/1 PACKET PO SCH (13:17)
--- NOTE | 2018-02-04 13:27 | PDOC PROGRESS REPORT ---
Subjective Progress Note for:: 02/04/18 Subjective:: Continues to feel weak in L arm and unsteady with difficulty ambulating. Echo pending. Continue PT/OT. Would benefit from subacute rehab [facility] Reason For Visit: CVA Physical Exam Vital Signs: Temp Pulse Resp BP Pulse Ox 97.9 F 75 20 132/66 H 93 02/04/18 12:23 02/04/18 12:23 02/04/18 12:23 02/04/18 12:23 02/04/18 12:23 Intake & Output 02/03/18 02/04/18 02/05/18 06:59 06:59 06:59 Intake Total 520 Output Total 0 Balance 520 Weight 78.2 kg General appearance: PRESENT: no acute distress Head exam: PRESENT: normocephalic Ear exam: PRESENT: normal external ear exam Teeth exam: PRESENT: edentulous Respiratory exam: PRESENT: symmetrical, unlabored Cardiovascular exam: PRESENT: RRR GI/Abdominal exam: PRESENT: normal bowel sounds, soft. ABSENT: tenderness Rectal exam: PRESENT: deferred Extremities exam: ABSENT: pedal edema Neurological exam: PRESENT: alert, awake, other - slured speech, L facial droop , L arm weakness 3+/5 Skin exam: ABSENT: petechiae Results Laboratory Results: 02/04/18 02/04/18 05:06 05:06 Triglycerides 263 H Cholesterol 156.42 LDL Cholesterol Direct 85 VLDL Cholesterol 52.6 H HDL Cholesterol 32 L TSH 0.77 Impressions: Neck MRA 02/03/18 00:00 IMPRESSION: NO SIGNIFICANT STENOSIS. Head CTA 02/03/18 06:07 IMPRESSION: 1. No definite acute abnormality identified in the intracranial circulation. No evidence of occlusion or stenosis. This exam was performed according to our departmental dose-optimization program, which includes automated exposure control, adjustment of the mA and/or kV according to patient size and/or use of iterative reconstruction technique. Head MRI 02/03/18 06:07 IMPRESSION: Small acute nonhemorrhagic subcortical white matter infarct, right frontal region EVIDENCE OF ACUTE STROKE: NO. Assessment & Plan - Diagnosis (1) Acute CVA (cerebrovascular accident) Is this a current diagnosis for this admission?: Yes Plan: Permissive Hypertension- hold Spironolactone, Lasix and Nadolol. Check Echo, monitor on tele. Continue Aspirin and Statin. Serial Neuro exams per protocol. PT, OT, speech therapy (2) Cirrhosis Is this a current diagnosis for this admission?: Yes Plan: Outpatient follow up (3) History of epistaxis Is this a current diagnosis for this admission?: Yes Plan: Monitor closely, [place] nasal spray to prevent nasal dryness (4) Diabetes Is this a current diagnosis for this admission?: Yes Plan: Hold Metformin Insulin sliding scale - Time Time Spent with patient: 35 or more minutes
[2018-02-04] MEDS ORDERED: ENOXAPARIN SODIUM INJ 40 MG/0.4 ML DISP.SYRIN SUBCUT ONE (14:00)
[2018-02-04] MEDS: INSULIN LISPRO 100 UNIT/ML 3 ML VIAL SUBCUT PRN ×2 (17:03→22:17)
[2018-02-04] MEDS: FEBUXOSTAT 80 MG TABLET PO SCH (17:04)
[2018-02-04] MEDS: ATORVASTATIN CALCIUM 80 MG TABLET PO SCH (22:04)
[2018-02-04] MEDS: CETIRIZINE 10 MG TABLET PO SCH (22:05)
[2018-02-05] MEDS: SODIUM CHLORIDE NASAL SPRAY 44 ML NASL SCH ×5 (02:54→22:10)
[2018-02-05] MEDS: SUCRALFATE 1 GM TABLET PO SCH ×5 (02:54→22:11)
[2018-02-05] MEDS: LANSOPRAZOLE 15 MG TAB.RAP.DR PO SCH (05:23)
[2018-02-05] MEDS: INSULIN LISPRO 100 UNIT/ML 3 ML VIAL SUBCUT PRN ×4 (08:02→22:11)
[2018-02-05] MEDS: GABAPENTIN 300 MG CAPSULE PO SCH ×3 (08:03→22:11)
[2018-02-05] MEDS: METHADONE HCL 10 MG TABLET PO SCH ×2 (10:25→22:11)
[2018-02-05] MEDS: ASPIRIN 81 MG TABLET, ENT COATED PO SCH (10:25)
[2018-02-05] MEDS: RIFAXIMIN 550 MG TABLET PO SCH ×2 (10:25→17:44)
[2018-02-05] MEDS: ENOXAPARIN SODIUM INJ 40 MG/0.4 ML DISP.SYRIN SUBCUT SCH (10:25)
[2018-02-05] MEDS: CALCIUM CARBONATE 250 MG/VITAMIN D3 125 UNIT TABLET PO SCH (10:26)
[2018-02-05] MEDS: FERROUS SULFATE 325 MG TABLET PO SCH ×2 (10:26→17:44)
[2018-02-05] MEDS: HC ACETATE/PRAMOXINE HCL 10 GM PR SCH ×3 (10:27→17:45)
[2018-02-05] MEDS: POLYETHYLENE GLYCOL 3350 POWDER 17 GM/1 PACKET PO SCH (13:34)
--- NOTE | 2018-02-05 15:01 | PDOC PROGRESS REPORT ---
Subjective Progress Note for:: 02/05/18 Subjective:: the patient is a very pleasant 73 yr old female with Hep C Cirrhosis She presented to the hospital with acute onset L facial droop, slurred speech and L arm weakness. MRI brain showed a small non hemorrhagic frontal infarct. no e/o arrhythmias on tele. Continues to feel weak in L arm and unsteady with difficulty ambulating. Continue PT/OT. She is awaiting subacute rehab and patient requests [facility] inpatient rehab. Reason For Visit: ACUTE CVA WORK UNDERWAY,AMBULATORY DYSFUNCTION, Physical Exam Vital Signs: Temp Pulse Resp BP Pulse Ox 97.7 F 75 18 134/58 H 95 02/05/18 12:04 02/05/18 14:00 02/05/18 12:04 02/05/18 12:04 02/05/18 12:04 Intake & Output 02/04/18 02/05/18 02/06/18 06:59 06:59 06:59 Intake Total 1111 100 Balance 1111 100 Weight 79.4 kg Results Impressions: Neck MRA 02/03/18 00:00 IMPRESSION: NO SIGNIFICANT STENOSIS. Head CTA 02/03/18 06:07 IMPRESSION: 1. No definite acute abnormality identified in the intracranial circulation. No evidence of occlusion or stenosis. This exam was performed according to our departmental dose-optimization program, which includes automated exposure control, adjustment of the mA and/or kV according to patient size and/or use of iterative reconstruction technique. Head MRI 02/03/18 06:07 IMPRESSION: Small acute nonhemorrhagic subcortical white matter infarct, right frontal region EVIDENCE OF ACUTE STROKE: NO. Assessment & Plan - Diagnosis (1) Acute CVA (cerebrovascular accident) Is this a current diagnosis for this admission?: Yes Plan: Will benefit from rehab- pending. Check Echo, monitor on tele. Continue Aspirin and Statin. PT, OT, speech therapy (2) Cirrhosis Is this a current diagnosis for this admission?: Yes Plan: Outpatient follow up (3) History of epistaxis Is this a current diagnosis for this admission?: Yes Plan: Monitor closely, [place] nasal spray to prevent nasal dryness (4) Diabetes Is this a current diagnosis for this admission?: Yes Plan: Metformin on hold Insulin sliding scale (5) DVT prophylaxis Is this a current diagnosis for this admission?: Yes Plan: S/C Lovenox - Time Time Spent with patient: 35 or more minutes
[2018-02-05] MEDS: FUROSEMIDE 40 MG TABLET PO SCH (17:44)
[2018-02-05] MEDS: FEBUXOSTAT 80 MG TABLET PO SCH (17:44)
[2018-02-05] MEDS ORDERED: (PENDING PHARMACY ID) (Nadolol [Corgard] 20 MG) PO SCH (22:00)
[2018-02-05] MEDS: ATORVASTATIN CALCIUM 80 MG TABLET PO SCH (22:10)
[2018-02-05] MEDS: NADOLOL 40 MG TABLET PO SCH (22:11)
[2018-02-05] MEDS: CETIRIZINE 10 MG TABLET PO SCH (22:11)
[2018-02-06] MEDS: LANSOPRAZOLE 15 MG TAB.RAP.DR PO SCH (05:47)
[2018-02-06] MEDS: METHADONE HCL 10 MG TABLET PO SCH ×2 (09:48→23:09)
[2018-02-06] MEDS: SUCRALFATE 1 GM TABLET PO SCH ×4 (09:48→23:08)
[2018-02-06] MEDS: ASPIRIN 81 MG TABLET, ENT COATED PO SCH (09:48)
[2018-02-06] MEDS: FERROUS SULFATE 325 MG TABLET PO SCH ×2 (09:48→17:10)
[2018-02-06] MEDS: FUROSEMIDE 80 MG TABLET PO SCH (09:48)
[2018-02-06] MEDS: GABAPENTIN 300 MG CAPSULE PO SCH ×3 (09:49→23:09)
[2018-02-06] MEDS: SPIRONOLACTONE 25 MG TABLET PO SCH (09:49)
[2018-02-06] MEDS: RIFAXIMIN 550 MG TABLET PO SCH ×2 (09:50→17:10)
[2018-02-06] MEDS: SODIUM CHLORIDE NASAL SPRAY 44 ML NASL SCH ×4 (09:50→23:17)
[2018-02-06] MEDS: CALCIUM CARBONATE 250 MG/VITAMIN D3 125 UNIT TABLET PO SCH (09:50)
[2018-02-06] MEDS: ENOXAPARIN SODIUM INJ 40 MG/0.4 ML DISP.SYRIN SUBCUT SCH (10:00)
[2018-02-06] MEDS: INSULIN LISPRO 100 UNIT/ML 3 ML VIAL SUBCUT PRN ×3 (10:00→17:11)
[2018-02-06] MEDS ORDERED: SPIRONOLACTONE 100 MG PO SCH (10:00)
[2018-02-06] MEDS: HC ACETATE/PRAMOXINE HCL 10 GM PR SCH ×3 (10:06→17:18)
[2018-02-06] MEDS: POLYETHYLENE GLYCOL 3350 POWDER 17 GM/1 PACKET PO SCH (11:35)
--- NOTE | 2018-02-06 12:51 | PDOC PROGRESS REPORT ---
Subjective Progress Note for:: 02/06/18 Subjective:: the patient is a very pleasant 73 yr old female with Hep C Cirrhosis She presented to the hospital with acute onset L facial droop, slurred speech and L arm weakness. MRI brain showed a small non hemorrhagic frontal infarct. Echo showed no thrombus or other risk factors for emboli. The patient feels better today. Continue PT/OT. She is awaiting subacute rehab and patient requests [facility] inpatient rehab. Reason For Visit: ACUTE CVA WORK UNDERWAY,AMBULATORY DYSFUNCTION, Physical Exam Vital Signs: Temp Pulse Resp BP Pulse Ox 97.9 F 62 16 134/75 H 100 02/06/18 11:33 02/06/18 11:33 02/06/18 11:33 02/06/18 11:33 02/06/18 11:33 Intake & Output 02/05/18 02/06/18 02/07/18 06:59 06:59 06:59 Intake Total 1111 808 Balance 1111 808 Weight 79.4 kg 78.8 kg General appearance: PRESENT: no acute distress Head exam: PRESENT: normocephalic Eye exam: PRESENT: PERRLA Ear exam: PRESENT: normal external ear exam Mouth exam: PRESENT: moist Neck exam: ABSENT: tracheal deviation Respiratory exam: PRESENT: symmetrical, unlabored. ABSENT: wheezes Cardiovascular exam: PRESENT: RRR. ABSENT: systolic murmur GI/Abdominal exam: PRESENT: normal bowel sounds, soft. ABSENT: tenderness Rectal exam: PRESENT: deferred Gentrourinary exam: ABSENT: indwelling catheter Extremities exam: ABSENT: pedal edema Musculoskeletal exam: PRESENT: normal inspection Neurological exam: PRESENT: alert, awake, oriented to person, oriented to place , oriented to time, oriented to situation, other - L arm strength 4+/5 L facial droop- improved Results Impressions: Neck MRA 02/03/18 00:00 IMPRESSION: NO SIGNIFICANT STENOSIS. Head CTA 02/03/18 06:07 IMPRESSION: 1. No definite acute abnormality identified in the intracranial circulation. No evidence of occlusion or stenosis. This exam was performed according to our departmental dose-optimization program, which includes automated exposure control, adjustment of the mA and/or kV according to patient size and/or use of iterative reconstruction technique. Head MRI 02/03/18 06:07 IMPRESSION: Small acute nonhemorrhagic subcortical white matter infarct, right frontal region EVIDENCE OF ACUTE STROKE: NO. Assessment & Plan - Diagnosis (1) Acute CVA (cerebrovascular accident) Is this a current diagnosis for this admission?: Yes Plan: Will benefit from rehab- pending. Continue Aspirin and Statin. PT, OT, speech therapy (2) Cirrhosis Is this a current diagnosis for this admission?: Yes Plan: Outpatient follow up. Lasix, Spironolactone, nadolol and Rifaximine have been restarted (3) History of epistaxis Is this a current diagnosis for this admission?: Yes Plan: Monitor closely, [place] nasal spray to prevent nasal dryness (4) Diabetes Is this a current diagnosis for this admission?: Yes Plan: Metformin on hold Insulin sliding scale (5) DVT prophylaxis Is this a current diagnosis for this admission?: Yes Plan: S/C Lovenox - Time Time Spent with patient: 25-34 minutes
[2018-02-06] MEDS: FUROSEMIDE 40 MG TABLET PO SCH (17:10)
[2018-02-06] MEDS: FEBUXOSTAT 80 MG TABLET PO SCH (17:10)
[2018-02-06] MEDS: ATORVASTATIN CALCIUM 80 MG TABLET PO SCH (23:08)
[2018-02-06] MEDS: CETIRIZINE 10 MG TABLET PO SCH (23:09)
[2018-02-06] MEDS: NADOLOL 40 MG TABLET PO SCH (23:09)
[2018-02-07] MEDS: LANSOPRAZOLE 15 MG TAB.RAP.DR PO SCH (06:16)
--- NOTE | 2018-02-07 08:13 | PDOC TRANSFER SUMMARY ---
General Admission Date/PCP: 02/04/18 13:22 BACILIO SMITH MD Resuscitation Status: Full Code - Transfer Diagnosis (1) Acute CVA (cerebrovascular accident) Is this a current diagnosis for this admission?: Yes (2) Cirrhosis Is this a current diagnosis for this admission?: Yes (3) History of epistaxis Is this a current diagnosis for this admission?: Yes (4) Diabetes Is this a current diagnosis for this admission?: Yes (5) DVT prophylaxis Is this a current diagnosis for this admission?: Yes - Transfer Medications Home Medications: Calcium Carbonate/Vitamin D3 [Calcium 600-Vit D3 400 Tablet] 1 tab PO DAILY 09/22 Cetirizine HCl [Zyrtec 10 mg Tablet] 10 mg PO QHS 02/03/18 Febuxostat [Uloric 80 mg Tablet] 80 mg PO DAILY 02/03/18 Ferrous Sulfate [Feosol 325 mg Tablet] 325 mg PO BID 02/03/18 Furosemide [Lasix 40 mg Tablet] 40 mg PO QPM 02/03/18 Furosemide [Lasix 80 mg Tablet] 80 mg PO QAM 02/03/18 Gabapentin [Neurontin 300 mg Capsule] 600 mg PO BID@08,12 02/03/18 Gabapentin [Neurontin 300 mg Capsule] 900 mg PO QHS 02/03/18 Metformin HCl [Glucophage] 1,000 mg PO Q12A 02/03/18 Methadone HCl [Dolophine 10 mg Tablet] 10 mg PO Q12 02/03/18 Nadolol [Corgard] 20 mg PO QHS 02/03/18 Omeprazole 20 mg PO QAM 02/03/18 Ondansetron HCl [Zofran 4 mg Tablet] 4 mg PO Q6HP PRN 02/03/18 Polyethylene Glycol 3350 [Miralax Powder 17 gm/Packet] 1 packet PO DAILY Rifaximin [Xifaxan 550 mg Tablet] 550 mg PO BID 02/03/18 Spironolactone [Aldactone] 100 mg PO DAILY 02/03/18 Sucralfate [Carafate 1 gm Tablet] 1 gm PO ACHS 02/03/18 Transfer Medications: Current Medications Acetaminophen (Tylenol 325 Mg Tablet) 650 mg PO Q4HP PRN PRN Reason: Temp greater than 101F Stop: 03/05/18 08:03 Last Admin: 02/03/18 23:43 Dose: 650 mg Aspirin (Ecotrin 81 Mg Ec Tablet) 81 mg PO DAILY FRANK Stop: 03/06/18 09:59 Last Admin: 02/06/18 09:48 Dose: 81 mg Atorvastatin Calcium (Lipitor 80 Mg Tablet) 80 mg PO QHS FRANK Stop: 03/05/18 21:59 Last Admin: 02/06/18 23:08 Dose: 80 mg Calcium Carbonate (Os-[place] 250 Mg With Vitamin D 125 Units) 2 tab PO DAILY FRANK Stop: 03/06/18 09:59 Last Admin: 02/06/18 09:50 Dose: 2 tab Cetirizine HCl (Zyrtec 10 Mg Tablet) 10 mg PO QHS FRANK Stop: 03/05/18 21:59 Last Admin: 02/06/18 23:09 Dose: 10 mg Dextrose (Dextrose Inj 50% Syringe (25 Gm/50 Ml)) 12.5 gm IV PRN PRN; Protocol PRN Reason: FOR BG 50-69 IN ALERT PATIENT Stop: 03/05/18 08:10 Dextrose (Dextrose Inj 50% Syringe (25 Gm/50 Ml)) 25 gm IV PRN PRN; Protocol PRN Reason: PER PROTOCOL Stop: 03/05/18 08:10 Enoxaparin Sodium (Lovenox Inj 40 Mg/0.4 Ml Disp.Syrin) 40 mg SUBCUT DAILY FRANK Stop: 03/07/18 09:59 Last Admin: 02/06/18 10:00 Dose: 40 mg Febuxostat (Uloric 80 Mg Tablet) 80 mg PO QPM FRANK Stop: 03/05/18 17:59 Last Admin: 02/06/18 17:10 Dose: 80 mg Ferrous Sulfate (Feosol 325 Mg Tablet) 325 mg PO BID FRANK Stop: 03/05/18 17:59 Last Admin: 02/06/18 17:10 Dose: 325 mg Furosemide (Lasix 40 Mg Tablet) 40 mg PO QPM FRANK Stop: 03/07/18 17:59 Last Admin: 02/06/18 17:10 Dose: 40 mg Furosemide (Lasix 80 Mg Tablet) 80 mg PO QAM FRANK Stop: 03/08/18 07:59 Last Admin: 02/06/18 09:48 Dose: 80 mg Gabapentin (Neurontin 300 Mg Capsule) 900 mg PO QHS FRANK Stop: 03/05/18 21:59 Last Admin: 02/06/18 23:09 Dose: 900 mg Gabapentin (Neurontin 300 Mg Capsule) 600 mg PO BID@,12 [facility] Stop: 03/06/18 07:59 Last Admin: 02/06/18 11:35 Dose: 600 mg Glucagon (Glucagen Inj 1 Mg Vial) 1 mg IM PRN PRN; Protocol PRN Reason: Evaluate for BG < 70 Stop: 03/05/18 08:10 Glucose (Glutose 40% Gel 15 Gm Tube) 15 gm PO PRN PRN; Protocol PRN Reason: FOR BG 50-69 IN ALERT PATIENT Stop: 03/05/18 08:10 Glucose (Glutose 40% Gel 15 Gm Tube) 30 gm PO PRN PRN; Protocol PRN Reason: FOR BG < 50 IN ALERT PATIENT Stop: 03/05/18 08:10 Hydrocortisone/Pramoxine (Epifoam Hc 1% Aerosol Foam) 1 applic KS TID [facility] Stop: 03/05/18 17:59 Last Admin: 02/06/18 17:18 Dose: Not Given Insulin Human Lispro (Humalog Insulin 100 Unit/1 Ml 3 Ml Vial) 0 - 12 unit SUBCUT ACP PRN PRN Reason: Protocol Stop: 03/05/18 15:59 Last Admin: 02/06/18 17:11 Dose: 2 unit Lansoprazole (Prevacid 15 Mg Odt Tablet) 15 mg PO Q6AM [facility] Stop: 03/06/18 05:59 Last Admin: 02/07/18 06:16 Dose: 15 mg Methadone HCl (Dolophine 10 Mg Tablet) 10 mg PO Q12 [facility] Stop: 02/10/18 21:59 Last Admin: 02/06/18 23:09 Dose: 10 mg Nadolol (Corgard 40 Mg Tablet) 20 mg PO QHS [facility] Stop: 03/07/18 21:59 Last Admin: 02/06/18 23:09 Dose: 20 mg Ondansetron HCl (Zofran Odt 4 Mg Tablet) 4 mg PO Q4HP PRN PRN Reason: FOR NAUSEA/VOMITING Stop: 03/05/18 08:03 Ondansetron HCl (Zofran Inj/Pf 4 Mg/2 Ml Sdv) 4 mg IV Q4HP PRN PRN Reason: FOR NAUSEA/VOMITING Stop: 03/05/18 08:03 Last Admin: 02/05/18 05:29 Dose: 4 mg Polyethylene Glycol (Miralax Powder 17 Gm/Packet) 17 gm PO DAILY@1400 [facility] Stop: 03/05/18 13:59 Last Admin: 02/06/18 11:35 Dose: 17 gm Rifaximin (Xifaxan 550 Mg Tablet) 550 mg PO BID FRANK Stop: 02/10/18 17:59 Last Admin: 02/06/18 17:10 Dose: 550 mg Sodium Chloride (Saline Flush 2.5 Ml Monoject Prefil Syrin) 2.5 ml IV Q8 FRANK Stop: 03/05/18 13:59 Last Admin: 02/07/18 06:16 Dose: 2.5 ml Sodium Chloride ([place] Nasal [place] 44 Ml Bottle) 1 spray NASL ACHS FRANK Stop: 03/05/18 15:59 Last Admin: 02/06/18 23:17 Dose: 1 spray Spironolactone (Aldactone 25 Mg Tablet) 100 mg PO DAILY FRANK Stop: 03/08/18 09:59 Last Admin: 02/06/18 09:49 Dose: 100 mg Sucralfate (Carafate 1 Gm Tablet) 1 gm PO ACHS FRANK Stop: 03/05/18 15:59 Last Admin: 02/06/18 23:08 Dose: 1 gm - Allergies Allergies/Adverse Reactions: No Known Allergies Allergy (Verified 02/03/18 08:58) - Diet/Activity Discharge Diet: Diabetic Hospital Course Hospital Course: The patient is a very pleasant 73 yr old female with Hep C Cirrhosis Epistaxis Hemorrhoids with intermittent bleeding Diabetes- not on insulin She presented to the hospital with acute onset L facial droop, slurred speech and L arm weakness. MRI brain showed a small non hemorrhagic frontal infarct. Echo showed no thrombus or other risk factors for emboli. No arrythmias on EKG or tele. She has been slowly improving. L facial droop persists, but l arm strength improved- now 4+/5 B/L lower extremity strength 5/5. Speech improved. No issues with swallowing. Transfer to [facility] for acute rehab. Stable for transfer Physical Exam Vital Signs: Temp Pulse Resp BP Pulse Ox 97.7 F 63 19 123/77 96 02/07/18 07:45 02/07/18 07:45 02/07/18 07:45 02/07/18 07:45 02/07/18 07:45 Intake & Output 02/06/18 02/07/18 02/08/18 06:59 06:59 06:59 Intake Total 808 875 Balance 808 875 Weight 78.8 kg 77.3 kg General appearance: PRESENT: no acute distress Head exam: PRESENT: normocephalic Eye exam: PRESENT: PERRLA Mouth exam: PRESENT: moist Respiratory exam: PRESENT: symmetrical, unlabored Results Impressions: Neck MRA 02/03/18 00:00 IMPRESSION: NO SIGNIFICANT STENOSIS. Head CTA 02/03/18 06:07 IMPRESSION: 1. No definite acute abnormality identified in the intracranial circulation. No evidence of occlusion or stenosis. This exam was performed according to our departmental dose-optimization program, which includes automated exposure control, adjustment of the mA and/or kV according to patient size and/or use of iterative reconstruction technique. Head MRI 02/03/18 06:07 IMPRESSION: Small acute nonhemorrhagic subcortical white matter infarct, right frontal region EVIDENCE OF ACUTE STROKE: NO. Status: Imported from PACS Plan Time Spent: Greater than 30 Minutes
[2018-02-07] MEDS: CALCIUM CARBONATE 250 MG/VITAMIN D3 125 UNIT TABLET PO SCH (08:31)
[2018-02-07] MEDS: GABAPENTIN 300 MG CAPSULE PO SCH (08:31)
[2018-02-07] MEDS: SUCRALFATE 1 GM TABLET PO SCH (08:32)
[2018-02-07] MEDS: FUROSEMIDE 80 MG TABLET PO SCH (08:32)
[2018-02-07] MEDS: FERROUS SULFATE 325 MG TABLET PO SCH (08:32)
[2018-02-07] MEDS: ASPIRIN 81 MG TABLET, ENT COATED PO SCH (08:33)
[2018-02-07] MEDS: METHADONE HCL 10 MG TABLET PO SCH (08:33)
[2018-02-07] MEDS: SODIUM CHLORIDE NASAL SPRAY 44 ML NASL SCH (08:34)
[2018-02-07] MEDS: SPIRONOLACTONE 25 MG TABLET PO SCH (08:34)
[2018-02-07] MEDS: RIFAXIMIN 550 MG TABLET PO SCH (08:34)
[2018-02-07] MEDS: ENOXAPARIN SODIUM INJ 40 MG/0.4 ML DISP.SYRIN SUBCUT SCH (08:36)
[2018-02-07] MEDS: HC ACETATE/PRAMOXINE HCL 10 GM PR SCH (08:36)
[2018-02-07 08:41] VITALS: BP 137/107
[2018-02-07] MEDS: INSULIN LISPRO 100 UNIT/ML 3 ML VIAL SUBCUT PRN (08:43)
== END 2018-02-07 09:04 | disposition short-term general hospital (02) | DRG 66 ==
LOC: ER 05:28 → UNDOADMOB 08:44 → EH 08:44 → 3W 10:24 → OBSVTOIN 02-04 13:22
PROVIDERS: ADMIT Emergency Medicine; ATTEND Emergency Medicine
DX: I63.9 Cerebral infarction, unspecified (principal); E11.42 Type 2 diabetes mellitus with diabetic polyneuropathy; R47.81 Slurred speech; R29.810 Facial weakness; K75.9 Inflammatory liver disease, unspecified; K74.60 Unspecified cirrhosis of liver; D50.0 Iron deficiency anemia secondary to blood loss (chronic); I10 Essential (primary) hypertension; R29.703 NIHSS score 3; Z79.84 Long term (current) use of oral hypoglycemic drugs; Z79.82 Long term (current) use of aspirin; Z79.899 Other long term (current) drug therapy
CPT/HCPCS: 36415; 70450; 70496; 70547; 70551; 71045; 80053; 80061; 82550; 82553; 82962; 83036; 84443; 84484; 85025; 85610; 85730; 93005; 93010; 93306; 96372; 96374; 99285; A9270-GY; G0378; G8978-GP; G8979-GP; G8987-GO; G8988-GO; G8996-GN; G8997-GN; J1650; J1815; J2405; J3490; S0164